=== PATIENT | female | born 1960 | race Two or more races ===

== ENCOUNTER 2018-04-12 11:53 | Emergency (ER) | payer MEDICAID ==
[~2018-04-12] VITALS: Ht 142.2 cm; Wt 79.4 kg
[2018-04-12] MEDS ORDERED: IBUPROFEN 400 MG TABLET PO ONE (12:30)
[2018-04-12] MEDS ORDERED: SILVER SULFADIAZINE CREAM 25 GM TUBE TP ONE (12:30)
--- NOTE | 2018-04-12 13:13 | NUR ---
PT. VERBALIZED UNDERSTANDING OF AFTERCARE INSTRUCTIONS.Patient discharged to home in stable condition. Written and verbal after care instructions given. Patient verbalizes understanding of instruction.
[2018-04-12 13:14] VITALS: BP 149/94
== END 2018-04-12 13:14 | disposition home or self-care (01) ==
LOC: ER 11:56
DX: T22.10XA Burn of first degree of shoulder and upper limb, except wrist and hand, unspecified site, initial encounter (principal); T20.16XA Burn of first degree of forehead and cheek, initial encounter; Z88.0 Allergy status to penicillin; X08.8XXA Exposure to other specified smoke, fire and flames, initial encounter; Y93.G3 Activity, cooking and baking; Y92.89 Other specified places as the place of occurrence of the external cause; Y99.8 Other external cause status
CPT/HCPCS: A4606; A4649; A6402; Z7610

== ENCOUNTER 2021-04-19 17:29 | Emergency (ER) | payer MEDICAID ==
[~2021-04-19] VITALS: Ht 162.6 cm; Wt 74.8 kg
--- NOTE | 2021-04-19 17:54 | NUR ---
BIBDAUGHTER FROM HOME TO ER BED 6. AAOX4. NOT IN RESP DISTRESS. AMBULATORY. BROUGHT IN FOR BEING DIFFICULT TO ARROUSE EARLIER THIS MORNIGN. PER PT'S DAUGHTER PT HAD A HEADACHE AND WHEN SHE WAS WAKING UP THE PT FROM HER SLEEP SHE WAS HARD RO ARROUSE. UPON ASSESSMENT, VERBALIZED THAT SHEE FELLS NORMAL FOR THE EXCEPTION FOR BEING DIZZY AND NAUSEAOUS. PT ALSO COMPLAINING OF R SHOULDER PAIN, PT RECEIVED COVID VACCINE RECENTLY. PROVIDER WAS AT THE BEDSIDE FOR EVAL. ORDERS RECEIVED, NOTED AND CARRIED OUT.
[2021-04-19] MEDS ORDERED: KETOROLAC TROMETHAMINE 15 MG/ML VIAL ONE (17:56)
[2021-04-19] MEDS ORDERED: ONDANSETRON HCL/PF 4 MG/2 ML VIAL ONE (17:56)
[2021-04-19] MEDS ORDERED: IV NS 0.9% 500 ML BAG IV ONE (18:00)
[2021-04-19] MEDS ORDERED: KETOROLAC TROMETHAMINE INJ 30 MG/ML VIAL IV ONE (18:00)
[2021-04-19] MEDS ORDERED: ONDANSETRON HCL/PF 4 MG/2 ML VIAL IVP ONE (18:00)
[2021-04-19 18:05] LABS: BASOPHILS # (AUTO) 0.1 K/uL (0.0-0.2); BASOPHILS % (AUTO) 0.7 % (0.0-2.0); HEMATOCRIT 44 % (33-45); HEMOGLOBIN 14.4 g/dL (11.5-14.8); LYMPHOCYTES # (AUTO) 2.8 K/uL (0.8-4.8); LYMPHOCYTES % (AUTO) 27.4 % (20.0-44.0); MEAN CORPUSCULAR HGB CONC 33 g/dl (31.0-36.0); MEAN CORPUSCULAR VOLUME 87 fL (82-100); MONOCYTES # (AUTO) 0.6 K/uL (0.1-1.30); MONOCYTES % (AUTO) 6.3 % (2.0-12.0); NEUTROPHILS # (AUTO) 6.4 K/uL (1.8-8.9); NEUTROPHILS % (AUTO) 63.6 % (43.0-81.0); PLATELET COUNT (AUTO) 370 K/uL (150-450); RED BLOOD CELL COUNT(AUTO) 5.08 MIL/uL (4.0-5.2)
[2021-04-19 18:18] LABS: BILIRUBIN,URINE Negative (NEGATIVE); COLOR,URINE YELLOW (YELLOW); LEUKOCYTE ESTERASE ,URINE Negative (NEGATIVE); NITRITE, URINE Negative (NEGATIVE); PROTEIN,URINE Negative (NEGATIVE); UGLUCOSE Negative (NEGATIVE); UROBILINOGEN,URINE 0.2 EU/dL (0.2)
[2021-04-19 18:31] LABS: ALANINE AMINOTRANSFERASE 28 U/L (12-78); ALBUMIN 3.7 g/dL (3.4-5.0); ALKALINE PHOSPHATASE 86 U/L (46-116); ASPARTATE AMINOTRANSFERASE 15 U/L (15-37); BILIRUBIN,DIRECT 0.1 mg/dL (0.0-0.2); BILIRUBIN,TOTAL 0.2 mg/dL (0.2-1.0); CARBON DIOXIDE 27 mmol/L (21-32); CHLORIDE 105 mmol/L (98-107); CREATININE 0.7 mg/dL (0.6-1.3); GLUCOSE 113 mg/dL (74-106); LIPASE 140 U/L (73-393); POTASSIUM 4.1 mmol/L (3.5-5.1); SODIUM SERUM 139 mmol/L (136-145); TOTAL PROTEIN, SERUM 7.7 g/dL (6.4-8.2); UREA NITROGEN, BLOOD 22 mg/dL (7-18)
[2021-04-19 18:32] LABS: CALCIUM, SERUM 8.7 mg/dL (8.5-10.1)
[2021-04-19 18:42] LABS: BACTERIA,URINE Rare /HPF (None Seen); SQUAMOUS EPITHELIAL CELL,UR Few /HPF (None Seen); WBC,URINE NONE SEEN /HPF (0-3)
--- NOTE | 2021-04-19 19:47 | NUR ---
Patient discharged to home in stable condition. Written and verbal after care instructions given. Patient verbalizes understanding of instruction.IV removed. Catheter intact and site benign. Pressure and 4x4 applied to site. No bleeding noted. Pt ambulatory with a steady gait
[2021-04-19 20:13] VITALS: BP 114/72
== END 2021-04-19 19:47 | disposition home or self-care (01) ==
LOC: ER 17:32
DX: E86.0 Dehydration (principal); Z88.0 Allergy status to penicillin
CPT/HCPCS: 36415; 71045; 80048; 80076; 81001; 83690; 84484; 85025; 87086; 93005; 96361; 96374; 96375; 99285; J1885; J2405; J7040

== ENCOUNTER 2022-04-24 21:30 | Emergency (ER) | payer MEDICAID ==
[~2022-04-24] VITALS: Ht 144.8 cm; Wt 79.4 kg
--- NOTE | 2022-04-24 22:45 | NUR ---
BIBFAMILY C/O FEELING DIZZY SINCE THIS MORNING, GET WORSE FROM SITTING TO STANDING, PLACED COMFORTABLY IN BED. VITALS CHECKED.
[2022-04-24] MEDS ORDERED: IV NS 0.9% 500 ML BAG IV ONE (23:00)
[2022-04-24] MEDS ORDERED: MECLIZINE HCL 12.5 MG TABLET PO ONE (23:00)
[2022-04-24] MEDS ORDERED: MECLIZINE HCL 12.5 MG TABLET ONE (23:14)
--- NOTE | 2022-04-24 23:24 | NUR ---
IV CANNULA G20 INSERTED ON LEFT AC G20.
--- NOTE | 2022-04-24 23:25 | NUR ---
IV FLUIDS STARTED, END TIME 0010H
--- NOTE | 2022-04-24 23:26 | NUR ---
PT WAS BROUGHT TO CT DEPT
[2022-04-24 23:29] LABS: BASOPHILS # (AUTO) 0.1 K/uL (0.0-0.2); BASOPHILS % (AUTO) 0.6 % (0.0-2.0); HEMATOCRIT 42 % (33-45); LYMPHOCYTES # (AUTO) 3.2 K/uL (0.8-4.8); LYMPHOCYTES % (AUTO) 36.8 % (20.0-44.0); MEAN CORPUSCULAR HGB CONC 33 g/dl (31.0-36.0); MEAN CORPUSCULAR VOLUME 86 fL (82-100); MONOCYTES # (AUTO) 0.6 K/uL (0.1-1.30); MONOCYTES % (AUTO) 6.4 % (2.0-12.0); NEUTROPHILS # (AUTO) 4.6 K/uL (1.8-8.9); NEUTROPHILS % (AUTO) 53.2 % (43.0-81.0); PLATELET COUNT (AUTO) 314 K/uL (150-450); RED BLOOD CELL COUNT(AUTO) 4.91 MIL/uL (4.0-5.2); WHITE BLOOD COUNT (AUTO) 8.7 K/uL (4.3-11.0)
--- NOTE | 2022-04-24 23:52 | NUR ---
FOLLOWED UP WITH LAB REGARDING CHEMISTRY
[2022-04-25] LABS: CALCIUM, SERUM 8.5 mg/dL (8.5-10.1); CREATININE 0.8 mg/dL (0.6-1.3); POTASSIUM 4.1 mmol/L (3.5-5.1)
[2022-04-25 00:06] LABS: ALBUMIN 3.7 g/dL (3.4-5.0); BILIRUBIN,DIRECT 0.1 mg/dL (0.0-0.2); BILIRUBIN,TOTAL 0.3 mg/dL (0.2-1.0); TOTAL PROTEIN, SERUM 7.5 g/dL (6.4-8.2)
--- NOTE | 2022-04-25 00:34 | NUR ---
COVID SWAB DONE AND SENT TO LAB
[2022-04-25] MEDS ORDERED: MECL-159 PO (01:11)
--- NOTE | 2022-04-25 01:19 | NUR ---
Patient does not wish to proceed with medical care recommended by Dr. Adam. Patient given information related to possible complications, up to and including , which could occur as a result of leaving the hospital at this time. Patient verbalizes understanding of risks involved due to leaving against medical advice. Patient has signed AMA form.
[2022-04-25 01:35] VITALS: BP 134/79
== END 2022-04-25 01:35 | disposition left against medical advice (07) ==
LOC: ER 21:37
DX: G93.89 Other specified disorders of brain (principal); R42 Dizziness and giddiness; Z20.822 Contact with and (suspected) exposure to COVID-19; Z53.29 Procedure and treatment not carried out because of patient's decision for other reasons; I45.2 Bifascicular block
CPT/HCPCS: 36415; 70450; 71045; 80048; 80076; 84484; 85025; 85730; 87426; 93005; 96360; 99285; C9803; J7040; J8597

== ENCOUNTER 2024-01-14 16:36 | Emergency (ER) | payer MEDICAID ==
[~2024-01-14] VITALS: Ht 152.4 cm; Wt 77.1 kg
[~2024-01-14 16:36] MED LIST: MECL-159 PO
[2024-01-14] MEDS ORDERED: IBUPROFEN 600 MG TABLET ONE (17:57)
[2024-01-14] MEDS ORDERED: ACETAMINOPHEN ES 500 MG TABLET ONE (17:57)
[2024-01-14] MEDS: IBUPROFEN 600 MG TABLET PO ONE (18:00)
[2024-01-14] MEDS: ACETAMINOPHEN ES 500 MG TABLET PO ONE (18:00)
[2024-01-14] MEDS ORDERED: IBUP-1955 PO (18:37)
[2024-01-14] MEDS ORDERED: ACET325C7 PO (18:37)
[2024-01-14 18:51] VITALS: BP 136/81; TEMP 97.9; O2SAT 99
== END 2024-01-14 18:52 | disposition home or self-care (01) ==
LOC: ER 16:38
DX: M25.551 Pain in right hip (principal); R94.31 Abnormal electrocardiogram [ECG] [EKG]; Z88.0 Allergy status to penicillin; W18.30XA Fall on same level, unspecified, initial encounter; Y93.89 Activity, other specified; Y92.89 Other specified places as the place of occurrence of the external cause; Y99.8 Other external cause status